=== PATIENT | male | born 1970 | race Caucasian/White ===

== ENCOUNTER → 2019-05-21 | Outpatient (CLI) | payer OTHER ==
--- NOTE | 2019-05-22 09:13 | REP ---
MRI brain/IACs: 05/21/2019. Indication: Cholesteatoma. Comparison: CT IACs dated 04/14/2019. Technique: Multiplanar short and long TR sequences of the brain/IACs were performed without IV Gadolinium. Findings: There are no areas of restricted diffusion. Fluid within the left greater than right middle ear cavities are present. Postoperative sequelae on the right are noted. The membranous labyrinth is unremarkable. There are no cerebellopontine/medullary angle or IACs abnormalities. There are scattered areas of T2 prolongation throughout the cerebral hemisphere white matter. There is no hydrocephalus or significant intracranial mass effect. Impression: Postoperative sequelae on the right status post mastoidectomy. Please see recent CT report for additional details. No acute intracranial process. 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 Electronically Signed by Atilio Barton DO 05/22/2019 09:04 A
== END ==
LOC: M RAD 17:52
PROVIDERS: ATTEND Otolaryngology
DX: I67.82 Cerebral ischemia (principal); H71.21 Cholesteatoma of mastoid, right ear

== ENCOUNTER 2019-12-28 13:00 | Outpatient (RCR) | payer OTHER | END 2020-01-01 | disposition home or self-care (01) | LOC: M OT 13:00 | PROVIDERS: ATTEND Internal Medicine | DX: I63.9 Cerebral infarction, unspecified (principal) ==

== ENCOUNTER 2020-01-11 08:00 | Outpatient (RCR) | payer OTHER | END 2020-02-01 | LOC: M OT 08:00 | PROVIDERS: ATTEND Internal Medicine | DX: I63.9 Cerebral infarction, unspecified (principal) ==